=== PATIENT | female | born 1935 | race Hispanic/Latino ===

== ENCOUNTER 2017-02-03 10:51 | Inpatient (IN) | payer MEDICARE, OTHER ==
[2017-02-03] MEDS: Albuterol-Ipratrop 3 mg / 0.5 (3 ml) UD IH SCH ×3 (11:21→12:03)
[2017-02-03 11:25] LABS: ADD MANUAL DIFF? NO
[2017-02-03 11:29] LABS: BASO # 0.02 K/mm3 (0.0-2.0); BASO % 0.1 % (0.0-3.0); GRAN % 87.7 % (50.0-68.0); LYMPH # 0.9 (1.2-3.4); LYMPH % 4.3 % (22.0-35.0); MEAN CELL VOLUME 87.1 fL (80.0-105.0); MEAN CORPUSCULAR HEMOGLOBIN 27.8 pg (25.0-35.0); MEAN CORPUSCULAR HGB CONC 31.9 g/dl (31.0-37.0); MEAN PLATELET VOLUME 10.2 fl (7.0-11.0); MONO # 1.6 (0.1-0.6); MONO % 7.9 % (1.0-6.0); PLATELET COUNT 293 10^3/uL (120.0-450.0); RED CELL DISTRIBUTION WIDTH 14.9 % (11.5-14.5); WHITE BLOOD COUNT 20.6 10^3/ul (4.5-11.0)
[2017-02-03 11:30] LABS: VENOUS BLOOD GAS BASE EXCESS 10.7 mmol/L (0.0-2.0); VENOUS BLOOD PH 7.38 (7.32-7.43)
--- NOTE | 2017-02-03 11:32 | ED PDOC ---
Arrival/HPI - General Chief Complaint: Shortness Of Breath Time Seen by Provider: 02/03/17 11:04 Historian: Patient - History of Present Illness Narrative History of Present Illness (Text): 02/03/17 11:07 A 81 year old female, whose past medical history includes chronic bronchitis and Bypass surgery, who presents to the emergency department complaining of shortness of breath and dyspnea on exertion for the past 5 days. Patient reports she talked to her PMD, who increased the dosage of predisone and water pill. Patient states she normal takes 5mg of predisone to 20mg. Patient notes she has been using her home nebulizer, which has brought her relief for short periods of time. Patient has a productive cough with "milk-like" sputum but denies any fever, chill, chest pain, nausea, vomiting, or any other complaints at this time. PMD: Dr. Gay Time/Duration: Other (5 days) Symptom Onset: Sudden Symptom Course: Unchanged Quality: Other Activities at Onset: Rest Context: Exertion, Home Past Medical History - Provider Review Nursing Documentation Reviewed: Yes - Infectious Disease Hx of Infectious Diseases: None - Reproductive Menopause: Yes - Cardiac Hx Cardiac Disorders: Yes Hx Hypertension: Yes - Pulmonary Hx Chronic Obstructive Pulmonary Disease (COPD): Yes Other/Comment: uses o2 at home prn - Neurological Hx Neurological Disorder: No - HEENT Hx HEENT Disorder: Yes Hx Cataracts: Yes (r eye sx, left eye no sx) Hx Glaucoma: Yes - Renal Hx Renal Disorder: No - Endocrine/Metabolic Hx Diabetes Mellitus Type 2: Yes - Hematological/Oncological Hx Blood Disorders: No - Integumentary Hx Dermatological Disorder: Yes (ROCEASEA) Other/Comment: bruise to r buttock, left arm, and bump to top back of head from fall 2 weeks ago - Musculoskeletal/Rheumatological Hx Falls: Yes - Gastrointestinal Hx Gastrointestinal Disorders: Yes (obese) - Genitourinary/Gynecological Hx Genitourinary Disorders: No - Psychiatric Hx Psychophysiologic Disorder: Yes (SMOKED CIGARETTES FOR 45 YRS. ETOH OCCASIONALLY) Hx Substance Use: No - Surgical History Hx Coronary Artery Bypass Graft: Yes - Anesthesia Hx Anesthesia Reactions: No Family/Social History - Physician Review Nursing Documentation Reviewed: Yes Family/Social History: Unknown Family HX Smoking Status: Never Smoked Hx Alcohol Use: Yes (social) Hx Substance Use: No Allergies/Home Meds Allergies/Adverse Reactions: Allergies No Known Allergies Allergy (Verified 02/03/17 11:03) Home Medications: Home Meds Medication Instructions Recorded Confirmed Latanoprost 0.005% Opht [Xalatan 1 drp BOTHEYES HS 11/16/15 02/03/17 Opht] Simvastatin 40 mg PO DAILY 11/16/15 02/03/17 ALPRAZolam [Xanax] 0.25 mg PO BID PRN 12/20/15 02/03/17 Albuterol Sulfate [Proair Hfa] 1 inh INH QID 12/20/15 02/03/17 Zolpidem [Ambien] 5 mg PO HS 12/20/15 02/03/17 Ergocalciferol (Vitamin D2) 1.25 iu PO .WEEKLY 07/18/16 02/03/17 [Vitamin D] Fluticasone/Salmeterol 250/50 1 inh INH BID 07/18/16 02/03/17 [Advair Diskus 250/50] Furosemide [Lasix] 40 mg PO .DAILY 07/18/16 02/03/17 Potassium Chloride [Klor-Con 10 meq PO DAILY 07/18/16 02/03/17 Sprinkle] Timolol 0.5% Ophth [Timoptic 0.5% 1 drop BOTHEYES DAILY 07/18/16 02/03/17 Ophth Soln] Tiotropium [Spiriva] 18 mcg IH DAILY 07/18/16 02/03/17 predniSONE [predniSONE Tab] 5 mg PO DAILY 07/19/16 02/03/17 Apixaban [Eliquis] 5 mg PO BID 02/03/17 02/03/17 Docusate Sodium [Colace] 100 mg PO DAILY 02/03/17 02/03/17 Metoprolol Succinate [Toprol XL] 12.5 mg PO DAILY 02/03/17 02/03/17 Review of Systems - Physician Review All systems were reviewed & negative as marked: Yes - Review of Systems Constitutional: absent: Fevers Respiratory: SOB, Cough, Sputum Cardiovascular: absent: Chest Pain Gastrointestinal: absent: Nausea, Vomiting Physical Exam Vital Signs Reviewed: Yes Vital Signs Temp Pulse Resp BP Pulse Ox 02/03/17 12:03 157/59 H 02/03/17 11:15 20 94 L 02/03/17 11:06 98.7 F 79 18 128/58 L 90 L Temperature: Afebrile Blood Pressure: Hypertensive Pulse: Regular Respiratory Rate: Normal Appearance: Positive for: Well-Appearing, Non-Toxic, Comfortable Pain Distress: None Mental Status: Positive for: Alert and Oriented X 3 - Systems Exam Head: Present: Atraumatic, Normocephalic Pupils: Present: PERRL Extroacular Muscles: Present: EOMI Conjunctiva: Present: Normal Mouth: Present: Moist Mucous Membranes Neck: Present: Normal Range of Motion. No: JVD Respiratory/Chest: Present: Good Air Exchange, Decreased Breath Sounds (diffuse) . No: Respiratory Distress, Accessory Muscle Use Cardiovascular: Present: Regular Rate and Rhythm, Normal S1, S2. No: Murmurs Abdomen: Present: Normal Bowel Sounds, Other (morbid obesity). No: Tenderness, Distention, Peritoneal Signs Back: Present: Normal Inspection Upper Extremity: Present: Normal Inspection. No: Cyanosis, Edema Lower Extremity: Present: Normal Inspection, NORMAL PULSES. No: Edema Neurological: Present: GCS=15, Speech Normal Skin: Present: Warm, Dry, Normal Color. No: Rashes Psychiatric: Present: Alert, Oriented x 3, Normal Insight, Normal Concentration Medical Decision Making ED Course and Treatment: EKG: Ordered, reviewed, and independently interpreted the EKG. Rate : 95 BPM Rhythm : NSR Interpretation : Nonspecific IVCD, No STEMI Comparison : Similar to previous EKG for comparison. 02/03/17 11:52 Chest X-ray: As read by me, bilateral pleural effusion and bi-basilar opacities , likely pulmonary edema 02/03/17 11:[address] Gay, who is aware and agrees with the plan to admit the patient to Telemetry for CHF and COPD exacerbation under her services. I have discussed the results and plan with the patient, who expresses understanding. Patient given the opportunity to ask question, all questions were answered and there is agreement with the plan to be admitted to the hospital. - Lab Interpretations Lab Results: 02/03/17 10:05 02/03/17 10:05 Lab Results 02/03/17 10:05: Sodium 137, Chloride 94 L, Potassium 4.0, Carbon Dioxide 35 H, Anion Gap 12, BUN 25 H, Creatinine 0.8, Est GFR ( Amer) > 60, Est GFR ( Non-Af Amer) > 60, Random Glucose 164 H, Calcium 9.4, Total Bilirubin 0.5, AST 21, ALT 17, Alkaline Phosphatase 95, Troponin I 0.03 D, NT-Pro-B Natriuret Pep 2250 H, Total Protein 7.2, Albumin 3.6, Globulin 3.5, Albumin/Globulin Ratio 1.0 L 02/03/17 10:05: pO2 60 H, VBG pH 7.38, VBG pCO2 65.0 H, VBG HCO3 38.5 H, VBG Total CO2 40.5 H, VBG O2 Sat (Calc) 94.3 H, VBG Base Excess 10.7 H, VBG Potassium 4.1, Sodium 137.0, Chloride 99.0, Glucose 168 H, Lactate 1.9, FiO2 21.0, Venous Blood Potassium 4.1 02/03/17 10:05: WBC 20.6 H D, RBC 4.82, Hgb 13.4, Hct 42.0, MCV 87.1, MCH 27.8, MCHC 31.9, RDW 14.9 H, Plt Count 293, MPV 10.2, Gran % 87.7 H, Lymph % (Auto) 4.3 L, [place] % (Auto) 7.9 H, Eos % (Auto) 0.0 L, Baso % (Auto) 0.1, Gran # 18.10 H, Lymph # 0.9 L, [place] # 1.6 H, Eos # 0.0, Baso # 0.02 I have reviewed the lab results: Yes - RAD Interpretation Radiology Orders: 02/03/17 11:14 CHEST TWO VIEWS (PA/LAT) [RAD] Stat - Medication Orders Current Medication Orders: Acetaminophen (Tylenol 325mg Tab) 650 mg PO Q6H PRN PRN Reason: Fever >100.4 F Alprazolam (Xanax) 0.25 mg PO BID PRN; Protocol PRN Reason: Anxiety Stop: 02/10/17 12:05 Apixaban (Eliquis) 5 mg PO BID [facility] PRN Reason: Protocol Aspirin (Aspirin Chewable) 81 mg PO DAILY [facility] Last Admin: 02/03/17 13:35 Dose: 81 mg Atorvastatin Calcium (Lipitor) 20 mg PO DIN [facility] Docusate Sodium (Colace) 100 mg PO DAILY [facility] Last Admin: 02/03/17 13:36 Dose: 100 mg Furosemide (Lasix) 40 mg IVP DAILY [facility] Last Admin: 02/03/17 13:37 Dose: Doxycycline Hyclate 100 mg/ (Sodium Chloride) 100 mls @ 100 mls/hr IVPB Q12 [facility] PRN Reason: Protocol Insulin Human Lispro (Humalog High) 0 units SC ACHS [facility] PRN Reason: Protocol Latanoprost (Xalatan Opht) 0 ml OU HS [facility] Levalbuterol HCl (Xopenex) 1.25 mg IH [id number] [facility] Methylprednisolone (Solu-Medrol) 40 mg IV Q8 [facility] Pantoprazole Sodium (Protonix Ec Tab) 40 mg PO 0630 [facility] Potassium Chloride (Klor-Con 10) 10 meq PO DAILY [facility] Timolol Maleate (Timoptic 0.5% Oph Soln) 0 drop OU DAILY [facility] Zolpidem Tartrate (Ambien) 5 mg PO HS [facility] PRN Reason: Protocol Discontinued Medications Albuterol/Ipratropium (Duoneb 3 Mg/0.5 Mg (3 Ml) Ud) 3 ml IH Q15M [facility] Stop: 02/03/17 11:46 Last Admin: 02/03/17 12:03 Dose: 3 ml Furosemide (Lasix) 40 mg IVP STAT ST[facility] Stop: 02/03/17 11:54 Last Admin: 02/03/17 12:03 Dose: 40 mg Levofloxacin/Dextrose (Levaquin 750mg) 750 mg in 150 mls @ 100 mls/hr IVPB STAT STA Stop: 02/03/17 13:23 Last Admin: 02/03/17 12:04 Dose: 100 mls/hr Methylprednisolone (Solu-Medrol) 125 mg IVP STAT STA Stop: 02/03/17 11:15 Last Admin: 02/03/17 11:21 Dose: 125 mg Non-Formulary Medication (Potassium Chloride [Klor-Con Sprinkle]) 10 meq PO DAILY [facility] Non-Formulary Medication (Simvastatin [Simvastatin]) 40 mg PO DAILY [facility] Potassium Chloride (Klor-Con 10) 10 meq PO .EXTRA DOSE ONE Stop: 02/03/17 12:16 Last Admin: 02/03/17 13:35 Dose: 10 meq - Scribe Statement The provider has reviewed the documentation as recorded by the Mariana Campa Provider Scribe Attestation: All medical record entries made by the Scribe were at my direction and personally dictated by me. I have reviewed the chart and agree that the record accurately reflects my personal performance of the history, physical exam, medical decision making, and the department course for this patient. I have also personally directed, reviewed, and agree with the discharge instructions and disposition. Disposition/Present on Arrival - Present on Arrival Any Indicators Present on Arrival: No History of DVT/PE: No History of Uncontrolled Diabetes: No Urinary Catheter: No History of Decub. Ulcer: No History Surgical Site Infection Following: None - Disposition Have Diagnosis and Disposition been Completed?: Yes Diagnosis: CHF exacerbation, COPD exacerbation Disposition: HOSPITALIZED Disposition Time: 11:55 Patient Problems: Current Active Problems Problem Status Onset COPD exacerbation Acute CHF exacerbation Acute Condition: STABLE
[2017-02-03 11:40] LABS: ALKALINE PHOSPHATASE 95 U/L (38-133); ALT/SGPT 17 U/L (7-56); AST/SGOT 21 U/L (15-39); BILIRUBIN,TOTAL 0.5 mg/dL (0.2-1.3); BLOOD UREA NITROGEN 25 mg/dL (7-21); CALCIUM 9.4 mg/dL (8.4-10.5); CARBON DIOXIDE 35 mmol/L (21-33); CHLORIDE 94 mmol/L (98-107); GFR AFRICAN-AMERICAN > 60; GLUCOSE,RANDOM 164 mg/dL (70-110); SODIUM 137 mmol/L (132-148); TOTAL PROTEIN 7.2 g/dL (5.8-8.3)
[2017-02-03 11:51] LABS: TROPONIN I 0.03 ng/mL
[2017-02-03] MEDS ORDERED: levoFLOXacin 750 mg in D5W 750 MG/150 ML BAG IVPB STA (11:54)
[2017-02-03] MEDS ORDERED: Potassium Chloride 10 mEq ER Tab PO ONE (12:15)
[2017-02-03] MEDS ORDERED: Non Formulary Medication (Simvastatin [Simvastatin] 40 MG) PO SCH (12:15)
[2017-02-03] MEDS ORDERED: Non Formulary Medication (Potassium Chloride [Klor-Con Sprinkle] 10 MEQ) PO SCH (12:15)
--- NOTE | 2017-02-03 13:27 | HP ---
The patient is an 81-year-old white female who has been calling me in office for the last 3-4 days th at she was increasingly short of breath. She usually takes 5 mg of prednisone daily, but it was incr eased to 20 daily for the last 3-4 days. She was advised to increase the frequency of her nebulizer treatment. She was also given extra doses of Lasix, but apparently it did not help and this morning, she told her daughter that she cannot breathe, so daughter called ambulance and she was brought to [facility]. Denies any fever or chills. Does complain of productive cough with clear to posada muc us. No fever, no chills, no hemoptysis, no hematemesis, no nausea, vomiting, no diarrhea. PAST MEDICAL HISTORY: Significant for: 1. Hypertension. 2. CHF. 3. Morbid obesity. 4. Hyperlipidemia. 5. Non-insulin dependent diabetes. ALLERGIES: She is not allergic to any medications. MEDICATIONS AT HOME: She takes: 1. Ambien 10 mg at bedtime. 2. Spiriva 18 mcg daily. 3. Timolol drops. 4. Simvastatin 40 mg daily. 5. Prednisone 5 mg daily. 6. Potassium 10 mEq daily. 7. Xalatan eyedrops. 8. Lasix 80 mg Friday, Friday and 40 on other days. 9. Aspirin 81 daily. 10. Nebulizer treatment. 11. Xanax 0.25 twice a day as needed. SOCIAL HISTORY: She has a history of smoking in the past. She used to be heavy smoker. Socially dr she and currently living with her daughter. REVIEW OF SYSTEMS: Significant for shortness of breath and generalized weakness. PHYSICAL EXAMINATION: GENERAL: She is awake and alert, communicative. VITAL SIGNS: She is afebrile. Pulse 79, respirations 18, blood pressure 128/58. LUNGS: Bilateral few expiratory rhonchi. HEART: S1, S2 audible. ABDOMEN: Soft, obese, nontender, no rebound, no guarding. NEUROLOGIC: The patient is awake and alert, communicative. Moves all extremities. LABORATORY EXAMINATION: WBCs 20.6, hemoglobin 13.4, hematocrit 42.0, platelets 293. Chemistry: Sod ium 137, potassium 4.0, chloride 94, CO2 35, BUN 25, creatinine 0.8, blood sugar of 164. BNP 2250. ASSESSMENT: 1. Chronic obstructive pulmonary disease exacerbation. 2. Congestive heart failure exacerbation. 3. Non-insulin dependent diabetes. 4. Hypertension. 5. Hyperlipidemia. PLAN: We will admit patient in telemetry, start IV diuretic, start her on Xopenex and monitor her bl ood sugar. Pulmonary consult by Dr. Martinez and cardiology consult by Dr. Manzo has been requested. Nataly Gay MD cc: [phone] TT: 02/03/2017 13:27:13 en
--- NOTE | 2017-02-03 15:09 | RAD ---
HISTORY: sob COMPARISON: Chest x-ray performed 07/18/16 TECHNIQUE: Chest PA and lateral FINDINGS: Examination limited by habitus. The patient's chin obscures evaluation of the lung apices. LUNGS: Bilateral mid to lower lung zone consolidations and/or pleural effusions. No definite pneumothorax. Please note that chest x-ray has limited sensitivity for the detection of pulmonary masses. CARDIOVASCULAR: Cardiomegaly. Atherosclerotic calcification of the aorta. Median sternotomy wires. OSSEOUS STRUCTURES: Degenerative changes. VISUALIZED UPPER ABDOMEN: Unremarkable. OTHER FINDINGS: None. IMPRESSION: Bilateral mid to lower lung zone consolidations and/or pleural effusions. Cardiomegaly. Study marked for PA review.
[2017-02-03] MEDS: Levalbuterol 1.25 MG/3 ML Inhal Soln UD IH SCH (15:10)
[2017-02-03] MEDS: MethylPREDNISolone 40 mg Vial IV SCH ×2 (15:11→22:32)
[2017-02-03] MEDS ORDERED: Insulin Regular 1 UNITS/0.01 ML ML ONE (17:39)
[2017-02-03] MEDS: Insulin Lispro (HUMAlog) HIGH Coverage SC SCH ×2 (17:42→22:07)
[2017-02-03] MEDS ORDERED: Latanoprost 2.5 ml Opht Soln OU SCH (22:00)
[2017-02-03 22:18] VITALS: BMI 43.8
[2017-02-03] MEDS ORDERED: Pneumococcal 23-Valent Vaccine IM ONE (22:18)
[2017-02-03] MEDS: Latanoprost 2.5 ml Opht Soln OU SCH (23:40)
[2017-02-04] MEDS: Levalbuterol 1.25 MG/3 ML Inhal Soln UD IH SCH ×4 (02:24→19:59)
[2017-02-04] MEDS: Pantoprazole 40 mg EC Tab PO SCH (05:31)
[2017-02-04] MEDS: MethylPREDNISolone 40 mg Vial IV SCH (05:31)
[2017-02-04] MEDS: Budesonide 0.5 mg/2 ml Inhal Susp UD IH SCH ×2 (07:51→19:59)
[2017-02-04] MEDS: Insulin Lispro (HUMAlog) HIGH Coverage SC SCH ×4 (08:41→22:12)
[2017-02-04] MEDS ORDERED: cefTRIAXone 1 gm 100 ML IVPB SCH (10:00)
[2017-02-04] MEDS: MethylPREDNISolone 40 mg Vial IVP SCH ×2 (10:23→21:51)
[2017-02-04] MEDS: Potassium Chloride 10 mEq ER Tab PO SCH (10:24)
[2017-02-04] MEDS: cefTRIAXone 1 gm 1 GM/100 ML BAG IVPB SCH (10:25)
--- NOTE | 2017-02-04 11:53 | PN ---
DATE: 02/04/2017 SUBJECTIVE: The patient is 81 years old, seen and examined, sitting in chair. She states she feels a lot better. She should have come to the hospital earlier. She can breathe now. PHYSICAL EXAMINATION: VITAL SIGNS: She is afebrile, pulse 86, respirations 20, blood pressure 140/66. LUNGS: Bilateral fair airflow, no rhonchi or crackle. HEART: S1, S2 audible. ABDOMEN: Soft, nontender, no rebound, no guarding. NEUROLOGIC: The patient is awake and alert, communicative. LABORATORY EXAMINATION: Chemistry: Blood sugar is 333. ASSESSMENT: 1. Chronic obstructive pulmonary disease exacerbation, rule out underlying pneumonia. 2. Acute on chronic congestive heart failure. 3. Morbid obesity. 4. Steroid-induced hyperglycemia. 5. Leukocytosis. PLAN: I will order for procalcitonin, order for CT scan of the chest to further define if she has co nsolidation. Because of her body habitus, that might not be reliable. I will order for CBC and CMP in a.m. Nataly Gay MD cc: [phone] TT: 02/04/2017 11:52:55 Confirmation # [id number] Dictation # [id number] wandy
--- NOTE | 2017-02-04 12:45 | CT ---
PROCEDURE: CT Chest without contrast HISTORY: sob COMPARISON: 02/14/2016 TECHNIQUE: Contiguous axial images were obtained through the chest without intravenous contrast enhancement. Sagittal and coronal reconstructions were performed. Radiation dose (DLP): 877.96 mGy-cm. This CT exam was performed using one or more of the following dose reduction techniques: Automated exposure control, adjustment of the mA and/or kV according to patient size, and/or use of iterative reconstruction technique. FINDINGS: LUNGS: Multifocal irregular opacities in the right lung, nonspecific. Few were small irregular opacities in the left lung. Irregularly-shaped subpleural nodule left lower lobe (series 4, image 80 ) measuring 9 mm. Focal pleural thickening anterior left lower lobe. 7 mm nodule in left upper lobe. This is seen on series 4, image 29. No other discrete pulmonary mass. Probable minimal subsegmental atelectasis in the left lower lobe anteriorly, abutting the pleural surface. These irregular opacities are nonspecific and may be infectious or inflammatory in etiology. The nodules should be followed with repeat noncontrast chest CT in 3 months time, given their size, as per Fleischner society criteria. . MEDIASTINUM: Aneurysmal dilatation of ascending thoracic aorta to a diameter of 4.1 cm. Cardiomegaly. Coronary arterial calcification. Dilated main pulmonary artery to a 3.8 cm diameter. This may correlate with pulmonary arterial hypertension. No lymphadenopathy. PLEURA: No pleural effusion or pneumothorax. BONES: No fracture. No destructive lesion. UPPER ABDOMEN: Grossly unremarkable. OTHER FINDINGS: None. IMPRESSION: Multifocal irregular opacities, right greater than left. Nonspecific. Infectious versus inflammatory. Few fred discrete nodules in the left lung as described, 7 mm and 9 mm. This should be followed up with repeat noncontrast chest CT in 3 months. . Cardiomegaly. Coronary arterial calcification. Aneurysmal dilatation of the ascending thoracic aorta. Dilated main pulmonary artery.
--- NOTE | 2017-02-04 13:02 | RAD ---
HISTORY: follow up COMPARISON: Comparison chest 02/03/2017. Comparison also made with concurrent CT scan TECHNIQUE: Chest PA and lateral FINDINGS: LUNGS: Bilateral mid to lower lobe opacity seen to better advantage on concurrent CT scan PLEURA: No significant pleural effusion identified. No pneumothorax apparent. CARDIOVASCULAR: Cardiomegaly. OSSEOUS STRUCTURES: No significant abnormalities. VISUALIZED UPPER ABDOMEN: Normal. OTHER FINDINGS: None. IMPRESSION: Patchy bilateral mid to lower lobe opacities. Cardiomegaly.
--- NOTE | 2017-02-04 13:39 | CON ---
DATE: 02/04/2017 REASON FOR CONSULTATION: Chronic obstructive pulmonary disease. REFERRING PHYSICIAN: Dr. Gay The patient is an 81-year-old female, with past medical history significant for advanced chronic obstructive pulmonary disease (uses oxygen at home), recurrent bronchitis, coronary artery disease, status post bypass surgery,obesity who presents to [facility] with a 4-day history of worsening shortness of breath at rest, dyspnea on exertion, cough, and sputum production. There is no history of chest pain, coughing up of blood or chest pain -- made worse with deep respirations. There is no history of temperatures, chills or infectious exposure. There is no history of night sweats, weight loss or appetite change prior to the above events. No history of leg or calf pains. No history of syncope or diaphoresis. No history of recent travel or trauma. REVIEW OF SYSTEMS: No history of nausea, vomiting or diarrhea. No acute urinary symptoms. No new neurologic or musculoskeletal complaints. Rest is negative. ALLERGIES: No known allergies. SOCIAL HISTORY: Positive for former tobacco usage. Positive for social alcohol usage. FAMILY HISTORY: No inheritable diseases. HOME MEDICATIONS: Include prednisone, Ambien, Spiriva, Toprol, Lasix, Advair, Eliquis, Xanax. PHYSICAL EXAMINATION: GENERAL: The patient appears comfortable at rest this morning. She is not using accessory muscles for breathing. VITAL SIGNS: Temperature is 98.0, pulse 86, respirations 18/20, blood pressure 132/48. Oxygen saturation on nasal cannula is 96%. HEENT: Normocephalic, atraumatic. No JVD. CARDIOVASCULAR: Systolic ejection murmur at the lower left sternal border. No S3 gallop. LUNGS: Decreased breath sounds at the bases. Mild bilateral rhonchi are appreciated. A few end expiratory wheezes are also appreciated. EXTREMITIES: Mild edema. No cyanosis, no clubbing. Calves are nontender to palpation. GASTROINTESTINAL: Abdomen is soft, nontender, nondistended. Bowel sounds are positive. SKIN: No acute rash. NEUROLOGIC: Limited at the present time. PERTINENT LABORATORY DATA: Chest x-ray was done in the Emergency Room yesterday. It is a poor semierect portable film. There is a questionable patchy infiltrate noted at the right base. CBC: White count 20.6, hemoglobin 13.4, hematocrit 42.0, platelets of 293. Complete metabolic profile: Chloride 94, carbon dioxide 35, BUN 25, glucose 164, B-type natriuretic peptide 2250. Rest of the metabolic profile is within normal limits. IMPRESSION: 1. Recurrent bronchitis. 2. Advanced chronic obstructive pulmonary disease. 3. Rule out pneumonia -- right lower lobe. 4. Coronary artery disease. 5. Diabetes mellitus. PLAN: The patient presents to [facility] with a 4-day history of worsening pulmonary symptoms. I did review the chest x-ray as above. The chest x-ray is a poor semierect portable film. I do question whether there is an infiltrate at the right base. As a first step, I will order a repeat chest x -ray -- 2 view -- for closer evaluation. In the meantime, I will order lozada cultures. The patient has been started on doxycycline. I will add Rocephin for the time being. On physical exam, there is mild bronchospasm appreciated. I will continue with the Xopenex nebulizer treatments and decrease the intravenous steroids this morning. I will also add inhaled Pulmicort. The patient does feel much better this morning -- compared to the previous days. She is clinically improved. Additional pulmonary intervention will be based on the above results, as well as the clinical status of the patient. I will discuss the above with Dr. Gay. Thank you very much for this pulmonary consultation. Smith Martinez MD cc: [phone] TT: 02/04/2017 13:38:32 Confirmation # [id number] Dictation # [id number] MTDD
--- NOTE | 2017-02-04 14:40 | CON ---
DATE: 02/04/2017 HISTORY OF PRESENT ILLNESS: This is an 81-year-old woman known to our practice , admitted with several days of progressive shortness of breath, admitted through the Emergency Room with exacerbation of COPD and CHF. She described increasing shortness of breath over the course of several days. She has been in contact with Dr. Gay who increased her Lasix and prednisone, but she continued to worsen and came to the Emergency Room. This morning she feels much better, lying flat in bed without shortness of breath. There was no chest pain, syncope, presyncope, lightheadedness, dizziness or vertigo. There were no palpitations, edema, claudication, fever, chills, rigor, sweats, hemoptysis. There was some cough with sputum production. There was no abdominal pain, nausea, vomiting, diarrhea, constipation, melena. PAST MEDICAL HISTORY: Notable for COPD. She is a former smoker and uses home O2. She has coronary artery disease with coronary bypass operation and chronic left bundle branch block. She has bradycardias and metoprolol was discontinued in the past. There is a history of hypertension, diabetes, hyperlipidemia, obesity, cataracts, degenerative joint disease, anxiety. Echocardiogram in 2015 demonstrated normal LV function with moderate tricuspid regurgitation and moderate to severe pulmonary hypertension. RECENT MEDICATIONS: Ambien, Spiriva, eyedrops, simvastatin, prednisone, potassium, Lasix, aspirin, nebulizers and Xanax. ALLERGIES: There are no medication allergies reported. SOCIAL HISTORY: She lives at home. She is a former smoker. She drinks alcohol occasionally. She lives at home with her daughter. FAMILY HISTORY: Noncontributory. REVIEW OF SYSTEMS: A 10-point review of systems is otherwise unremarkable except as noted above. PHYSICAL EXAMINATION: GENERAL: She is a well-developed woman lying in bed on telemetry in no acute distress. VITAL SIGNS: Unremarkable. She is in sinus rhythm at 86 beats per minute. She is afebrile. Blood pressure 132/48, respirations 18-20, O2 sat 95-99% on nasal cannula. HEENT: Reveals no neck vein distention, thyromegaly, or carotid bruits. Mucous membranes are moist. Conjunctivae are pink. NECK: Supple. LUNG LEE: Scattered rhonchi. A few rales at the bases bilaterally. HEART: Revealed normal first and second heart sounds, somewhat distant. Soft systolic murmur along the lower left sternal border. PMI not palpable. ABDOMEN: Obese, benign. Bowel sounds present. No mass, organomegaly, tenderness, rebound, or guarding. No CVA tenderness. No palpable abdominal aortic aneurysm. EXTREMITIES: Reveals no cyanosis, clubbing or edema. NEUROLOGIC: Awake, alert and oriented. PSYCHIATRIC: Normal as to mood and affect. SKIN: Warm and dry. No rash or cellulitis. LABORATORY AND IMAGING: A chest x-ray reveals congestive heart failure, bilateral mid to lower lung zone consolidations and/or pleural effusions, cardiomegaly. EKG demonstrates regular sinus rhythm, PVCs, left bundle branch block. White count 20,600. Hemoglobin, hematocrit normal. Platelet count normal. Blood gas noted. Electrolytes notable for chloride 94, carbon dioxide 35, sodium 137, potassium 4.0, BUN 25, creatinine 0.8. Blood sugars in the 146- 231 range. LFTs unremarkable. Troponin 0.03. BNP 2250. IMPRESSION: The patient is an 81-year-old woman with severe chronic obstructive pulmonary disease, on home oxygen, who presents with 4-5 days of increasing shortness of breath and comes in with evidence of chronic obstructive pulmonary disease and congestive heart failure. She has a history of pulmonary hypertension, moderate tricuspid regurgitation, normal left ventricular function on echocardiogram about a year ago. She has coronary artery bypass surgery in the remote past and a chronic left bundle branch block. At this time, I agree with current plan. She is on telemetry. She is receiving IV Lasix and already feels much better. Her I and O, however, was not recorded. She is getting aspirin, Eliquis, potassium, Lipitor, eyedrops, pulmonary meds, Solu-Medrol, pantoprazole, and a dose of levofloxacin has been given. We will monitor I's and O's. I will review her old records. She is having a pulmonary consultation with Dr. Martinez. She can be out of bed to a chair. We will monitor stool for occult blood, daily labs, sats and followup chest x- rays. I will follow along with you. I will make additional recommendations based on her clinical course. Carlos Eduardo Manzo MD cc: [phone] TT: 02/04/2017 14:39:22 Confirmation # [id number] Dictation # [id number] mn CLIFF
--- NOTE | 2017-02-04 17:58 | CARD ---
APPROVED REPORT EKG Measurement Heart [id number] <Conclusion> Sinus rhythm with occasional premature ventricular complexes and premature atrial complexes Nonspecific intraventricular block Cannot rule out Anterior infarct, age undetermined Abnormal ECG
[2017-02-04] MEDS: Latanoprost 2.5 ml Opht Soln OU SCH (22:02)
[2017-02-05] MEDS: Levalbuterol 1.25 MG/3 ML Inhal Soln UD IH SCH ×4 (02:13→19:17)
[2017-02-05] MEDS: Pantoprazole 40 mg EC Tab PO SCH (05:55)
[2017-02-05] MEDS: Budesonide 0.5 mg/2 ml Inhal Susp UD IH SCH ×2 (07:47→19:17)
[2017-02-05 07:55] LABS: ADD MANUAL DIFF? NO
[2017-02-05 08:01] LABS: BASO # 0.02 K/mm3 (0.0-2.0); BASO % 0.1 % (0.0-3.0); GRAN # 12.41 (1.4-6.5); HEMATOCRIT 39.2 % (36.0-48.0); LYMPH # 1.3 (1.2-3.4); LYMPH % 8.5 % (22.0-35.0); MEAN CELL VOLUME 88.3 fL (80.0-105.0); MEAN CORPUSCULAR HGB CONC 30.6 g/dl (31.0-37.0); MEAN PLATELET VOLUME 9.9 fl (7.0-11.0); MONO # 1.1 (0.1-0.6); MONO % 7.4 % (1.0-6.0); PLATELET COUNT 286 10^3/uL (120.0-450.0); RED CELL DISTRIBUTION WIDTH 14.8 % (11.5-14.5); WHITE BLOOD COUNT 14.8 10^3/ul (4.5-11.0)
--- NOTE | 2017-02-05 08:10 | PQF CHF ---
This form is a permanent part of the medical record Dr. Gay, Your documentation notes acute on chronic CHF. Please specify type: systolic or diastolic. Clarification of your documentation is requested to better reflect the severity of illness and intensity of treatment of your patient. Indicators present [x] Diagnosis of CHF and/or history of CHF [x] BNP > 200 [x] Imaging Finding of Pulmonary Edema /Pleural Effusions [] Fluid/Volume Overload [] Pitting edema [] Ejection Fraction < 40% (Indicative of Systolic Heart Failure) [] Ejection Fraction > 40% (Indicative of Diastolic Heart Failure) [x] Dyspnea / Orthopenea / Paroxysmal Nocturnal Dyspnea [x] Other: Documentation by cardiology of normal LVF Location in the medical record that reflects the above clinical findings: [] Treatment Provided: [] PHYSICIAN'S RESPONSE Based on your medical judgment of the clinical indicators outlined above, are you treating this patient for a known or suspected: [] Acute CHF [] Systolic [] Diastolic [] Combined [] Chronic CHF [] Systolic [] Diastolic [] Combined x[] Acute on Chronic CHF [x]Systolic [] Diastolic [] Combined [] CHF due hypertension [] Acute systolic []Chronic systolic [] Acute/ chronic systolic [] Other, please indicate: [] [] If Unable to Determine, please check the box, sign and date. Present On Admission (POA) Indicator: [] Present at the time of admission [] Not present at the time of admission [] Clinically Undetermined In responding to this query, please exercise your independent professional judgment. The fact that a question is asked does not imply that any particular answer is desired or expected. Thank you for your clarification on this documentation. If you have any questions please call:[ ] * Thank you, [ ]Servando Butts [facility] #[id number] fleet administrative assistant CLIFF
[2017-02-05 08:31] LABS: ALB/GLOB RATIO 1.1 (1.1-1.8); ALKALINE PHOSPHATASE 72 U/L (38-133); ALT/SGPT 25 U/L (7-56); AST/SGOT 20 U/L (15-39); BILIRUBIN,TOTAL 0.2 mg/dL (0.2-1.3); BLOOD UREA NITROGEN 31 mg/dL (7-21); CALCIUM 9.6 mg/dL (8.4-10.5); CARBON DIOXIDE 38 mmol/L (21-33); CHLORIDE 99 mmol/L (95-110); GFR AFRICAN-AMERICAN > 60; GLUCOSE,RANDOM 130 mg/dL (70-110); POTASSIUM 5.2 mmol/L (3.6-5.0); SODIUM 141 mmol/L (132-148)
[2017-02-05] MEDS: Insulin Lispro (HUMAlog) HIGH Coverage SC SCH ×4 (08:56→21:58)
--- NOTE | 2017-02-05 08:57 | PN ---
DATE: 02/05/2017 SUBJECTIVE: The patient appears comfortable this morning. She is not short of breath at rest. PHYSICAL EXAMINATION: VITAL SIGNS: Temperature is 98.9, pulse is 69, respirations 18/20, blood pressure 100/61. Oxygen saturation on nasal cannula is 96%. HEENT: Normocephalic, atraumatic. No JVD. CARDIOVASCULAR: Systolic ejection murmur at the lower left sternal border. No S3 gallop. LUNGS: Improved breath sounds at the bases. Much less rhonchi. Less wheezing. EXTREMITIES: Mild edema. No cyanosis, no clubbing. Calves are nontender to palpation. GASTROINTESTINAL: Abdomen is soft, nontender, nondistended. Bowel sounds are positive. SKIN: No acute rash. NEUROLOGIC: Limited at the present time. PERTINENT LABORATORY DATA: CAT scan of the chest was done yesterday and reviewed. There are patchy changes seen -- most notably in the right middle lobe and right lower lobes. Most of these areas do contain air bronchograms and are most consistent with pneumonia. There are also a few small nodules noted in the left lung -- one in the left upper lobe and one in the left lower lobe. IMPRESSION: 1. Recurrent bronchitis. 2. Advanced chronic obstructive pulmonary disease. 3. Pneumonia -- right lower lobe,right middle lobe. 4. Coronary artery disease. 5. Diabetes mellitus. 6. Pulmonary nodules. PLAN: The patient appears very comfortable this morning. She is not short of breath at rest. Her cough is much less. She states to feeling much better overall. On physical exam, her bronchospasm is certainly less. I will continue with the current nebulizer treatments and decrease the intravenous steroids this morning. There is no significant alveolar arterial gradient. Oxygen saturation on nasal cannula is now 96%. I did review the CAT scan of the chest. There are patchy opacities in the right lung -- specifically in the right middle lobe and right lower lobes -- with air bronchograms -- most consistent with pneumonia. There are also 2 small pulmonary nodules noted in the left lung. I did discuss the CAT scan findings with the patient at length. The patient is well aware that she will need a followup CAT scan-- as an outpatient--after the completion of antibiotics. She does follow closely with me in the office. For now, I will continue with the current antibiotic therapy. There are no temperatures noted. Repeat a.m. labs are pending. Clinical status of the patient is certainly improved -- compared to the initial presentation. However, the overall status/prognosis of this elderly woman -- with advanced chronic obstructive pulmonary disease - does remain guarded. I will discuss the above with the attending physician this morning. Smith Martinez MD cc: [phone] TT: 02/05/2017 08:56:56 Confirmation # [id number] Dictation # [id number] tn MTDD
--- NOTE | 2017-02-05 10:43 | PN ---
DATE: 02/05/2017 SUBJECTIVE: The patient is seen lying in bed on 3R. She feels somewhat better. Her dyspnea has imp roved. She continues to have a cough, but it is now nonproductive. She is afebrile. CURRENT MEDICATIONS: Include aspirin, Colace, doxycycline, Eliquis 5 mg b.i.d., insulin coverage, La six 40 mg daily, potassium 10 mEq daily, Lipitor 20 mg daily, Protonix 40 mg daily, Pulmicort inhaler , Rocephin, Solu-Medrol 30 mg q. 12 hours, Timoptic and Xalatan eyedrops, Xopenex and Xanax p.r.n. OBJECTIVE: GENERAL: She is an obese, elderly woman. VITAL SIGNS: Her blood pressure is 100/60 with a pulse of 70 in sinus, respirations are 16. She is afebrile. HEENT: No JVD. CHEST: Bilateral rhonchi heard. No wheezes noted this morning. HEART: PMI displaced laterally with distant sounds noted. ABDOMEN: Soft. Nontender. Obese with normoactive bowel sounds. EXTREMITIES: No edema. DIAGNOSTIC DATA: Potassium 5.2, BUN and creatinine are 31 and 0.9. White count 14.8, hemoglobin and hematocrit 12 and 39.2, platelet count 286,000. Cardiac enzymes are negative. Glucose is 130. CT of the chest shows evidence of multifocal irregular opacifications in the right lung greater than the left. Cardiomegaly is present. No pleural effusions are seen. IMPRESSION: 1. Chronic obstructive pulmonary disease exacerbation, clinically improved. 2. Coronary artery disease, status post remote bypass surgery, clinically stable. 3. No clear evidence of decompensated congestive heart failure at the present time. 4. Rest of problems as noted. RECOMMENDATIONS: Her current treatment should be continued. Her current cardiac medications will be continued as well. She was advised to get out of bed and begin ambulation as tolerated. We will co ntinue to follow along and make further recommendations as appropriate. Nickolas Millard MD cc: [id number] TT: 02/05/2017 10:42:44 Confirmation # [id number] Dictation # [id number] tn
[2017-02-05] MEDS: cefTRIAXone 1 gm 1 GM/100 ML BAG IVPB SCH (10:49)
[2017-02-05] MEDS: MethylPREDNISolone 40 mg Vial IVP SCH ×2 (10:50→22:04)
[2017-02-05] MEDS: Potassium Chloride 10 mEq ER Tab PO SCH (10:51)
--- NOTE | 2017-02-05 13:00 | PN ---
DATE: 02/05/2017 SUBJECTIVE: The patient is an 81-year-old, seen and examined. She states she is doing well. Last n ight she could not sleep because she has to go for a couple of tests. Denies any chest pain, no shor tness of breath, no nausea, vomiting or diarrhea. She does state that when she walks to the bathroom she does get short of breath. PHYSICAL EXAMINATION: VITAL SIGNS: She is afebrile, pulse 79, respirations 19, blood pressure 128/63. LUNGS: Bilateral fair airflow. Diffusely decreased breath sounds because of COPD. No soft crackle. HEART: S1, S2 audible. ABDOMEN: Soft, obese, nontender, no rebound, no guarding. NEUROLOGIC: She is awake and alert, communicative. EXTREMITIES: Bilateral legs, no edema. LABORATORY EXAMINATION: WBC is 14.8, hemoglobin 12, hematocrit 39, platelet 286. Chemistry: Sodium 141, potassium 5.2, chloride 38, chloride 99, CO2 of 38, BUN 31, creatinine 0.9, blood sugar of 203. She had CT scan of the chest done. CT scan of the chest shows multifocal irregular opacities, righ t greater than the left, nonspecific infectious versus inflammatory. There is a nodule in the left l osman. ASSESSMENT: 1. Chronic obstructive pulmonary disease exacerbation. 2. Morbid obesity. 3. Acute on chronic mild systolic congestive heart failure. 4. Hypertension. 5. Steroid-induced hyperglycemia. PLAN: We will continue patient on current medical regimen. She is currently on Rocephin and doxycyc line. Continue nebulizer treatment. Will follow up this patient in a.m. Out of bed to chair. Nataly Gay MD cc: [phone] TT: 02/05/2017 12:59:50 Confirmation # [id number] Dictation # [id number] wandy
[2017-02-05] MEDS: Latanoprost 2.5 ml Opht Soln OU SCH (22:05)
[2017-02-06] MEDS: Levalbuterol 1.25 MG/3 ML Inhal Soln UD IH SCH ×4 (01:26→19:30)
[2017-02-06] MEDS: Pantoprazole 40 mg EC Tab PO SCH (05:50)
[2017-02-06] MEDS: Insulin Lispro (HUMAlog) HIGH Coverage SC SCH ×4 (08:00→22:21)
[2017-02-06] MEDS: Budesonide 0.5 mg/2 ml Inhal Susp UD IH SCH ×2 (08:22→19:30)
--- NOTE | 2017-02-06 08:46 | CP.PCM.PN ---
Subjective - Date & Time of Evaluation Date of Evaluation: 02/06/17 Time of Evaluation: 07:00 - Subjective Subjective: Stable on 2R. No CP or SOB. She feels better. V/S noted: RSR PE: Lungs: few rhonchi Cor.: S1S2 Abd.: soft Ext.: no edema Neuro.: alert I/O= 500/701 BC x2 NG at 48 hrs Labs noted. Objective - Vital Signs/Intake and Output Vital Signs (last 24 hours): Temp Pulse Resp BP Pulse Ox 98.4 F 75 20 115/51 L 97 02/06/17 06:00 02/06/17 06:00 02/06/17 06:00 02/06/17 06:00 02/06/17 06:00 Intake and Output: 02/06/17 02/06/17 06:59 18:59 Intake Total 500 Output Total 701 Balance -201 - Medications Medications: Current Medications Acetaminophen (Tylenol 325mg Tab) 650 mg PO Q6H PRN PRN Reason: Fever >100.4 F Alprazolam (Xanax) 0.25 mg PO BID PRN; Protocol PRN Reason: Anxiety Stop: 02/10/17 12:05 Amlodipine Besylate (Norvasc) 10 mg PO DAILY [facility] Apixaban (Eliquis) 5 mg PO BID [facility] PRN Reason: Protocol Last Admin: 02/05/17 18:15 Dose: 5 mg Aspirin (Aspirin Chewable) 81 mg PO DAILY [facility] Last Admin: 02/05/17 10:49 Dose: 81 mg Atorvastatin Calcium (Lipitor) 20 mg PO DIN [facility] Last Admin: 02/05/17 18:15 Dose: 20 mg Budesonide (Pulmicort Respules) 0.5 mg IH [id number] [facility] Last Admin: 02/06/17 08:22 Dose: 0.5 mg Docusate Sodium (Colace) 100 mg PO DAILY [facility] Last Admin: 02/05/17 10:49 Dose: 100 mg Furosemide (Lasix) 40 mg IVP DAILY [facility] Last Admin: 02/05/17 10:53 Dose: 40 mg Doxycycline Hyclate 100 mg/ (Sodium Chloride) 100 mls @ 100 mls/hr IVPB Q12 [facility] PRN Reason: Protocol Last Admin: 02/05/17 22:04 Dose: 100 mls/hr Ceftriaxone Sodium (Rocephin 1 Gram Ivpb) 1 gm in 100 mls @ 100 mls/hr IVPB DAILY [facility] PRN Reason: Protocol Last Admin: 02/05/17 10:49 Dose: 100 mls/hr Insulin Human Lispro (Humalog High) 0 units SC ACHS [facility] PRN Reason: Protocol Last Admin: 02/05/17 21:58 Dose: Not Given Latanoprost (Xalatan Opht) 0 ml OU HS [facility] Last Admin: 02/05/17 22:05 Dose: 2.5 ml Levalbuterol HCl (Xopenex) 1.25 mg IH [id number] [facility] Last Admin: 02/06/17 08:22 Dose: 1.25 mg Methylprednisolone (Solu-Medrol) 30 mg IVP Q12 [facility] Last Admin: 02/05/17 22:04 Dose: 30 mg Pantoprazole Sodium (Protonix Ec Tab) 40 mg PO 0630 [facility] Last Admin: 02/06/17 05:50 Dose: 40 mg Potassium Chloride (Klor-Con 10) 10 meq PO DAILY [facility] Last Admin: 02/05/17 10:51 Dose: Not Given Timolol Maleate (Timoptic 0.5% Ophth Soln) 0 drop OU DAILY [facility] Last Admin: 02/05/17 11:18 Dose: Not Given Zolpidem Tartrate (Ambien) 5 mg PO HS [facility] PRN Reason: Protocol Last Admin: 02/05/17 23:00 Dose: 5 mg - Labs Labs: 02/05/17 07:30 02/05/17 07:30 Assessment and Plan - Assessment and Plan (Free Text) Assessment: Dyspnea COPD/Bronchitis/Home O2 Pneumonia Pulmonary nodules CAD/CABG Echo: Nl LV, Mod. TR, Mod/Sev PH HBP HLD LBBB Former Smoker Glaucoma Cataracts Plan: As per pulmonary, Dr. Gay OOB/PT/TCU Eval.
--- NOTE | 2017-02-06 09:02 | PN ---
DATE: 02/06/2017 The patient was seen and examined at bedside. She is currently on nasal cannula. She reports feelin g better with less cough and less sputum production. VITAL SIGNS: Temperature is 98.4, pulse 75, respirations 20, pulse oximetry is 97% on nasal cannula, blood pressure is 115/50. LABORATORY DATA: No new laboratory data to review. PHYSICAL EXAMINATION: HEAD, EARS, NOSE AND THROAT: Within normal limits. NECK: Supple with no jugular vein distention. CHEST: Symmetrical. HEART: S1, S2. No S3. Regular. LUNGS: Diminished breath sounds at both bases with few scattered rhonchi and few expiratory wheezes. GASTROINTESTINAL: Soft, nontender, no organomegaly. EXTREMITIES: Mild edema. No cyanosis. SKIN: No acute skin rash. NEUROLOGIC: Limited at present time. ASSESSMENT: 1. Recurrent bronchitis, pneumonia, right middle lobe by CT scan. 2. Advanced chronic obstructive pulmonary disease. 3. Pulmonary nodules. PLAN: The patient appears improved this morning. She has less cough and less shortness of breath. She is afebrile. She is receiving intravenous antibiotics as well as intravenous steroids. The ster oids can be tapered. The antibiotics should continue in view of the infiltrates seen on a CT scan of chest. Will follow closely. Adrien La MD cc: [id number] TT: 02/06/2017 09:02:19 Confirmation # [id number] Dictation # [id number] alisia
[2017-02-06] MEDS: MethylPREDNISolone 40 mg Vial IVP SCH ×2 (09:59→21:25)
[2017-02-06] MEDS: cefTRIAXone 1 gm 1 GM/100 ML BAG IVPB SCH (11:32)
--- NOTE | 2017-02-06 12:40 | PN ---
DATE: 02/06/2017 SUBJECTIVE: The patient is 81 years old, seen and examined, sitting in chair, seems to be comfortabl e. Gets short of breath on walking. Minimal even to the bathroom. No chest pain. PHYSICAL EXAMINATION: VITAL SIGNS: She is afebrile, pulse 80, respirations 20, blood pressure 166/67. LUNGS: Bilateral diffusely decreased breath sounds with few expiratory rhonchi. HEART: S1, S2 audible. ABDOMEN: Soft, obese, nontender, no rebound, no guarding. NEUROLOGIC: She is awake and alert, able to communicate. EXTREMITIES: Bilateral legs +4 edema. LABORATORY EXAMINATION: There is no new lab available today; however, her blood sugar is 222. Blood cultures are negative. ASSESSMENT: 1. Patchy bilateral infiltrates. 2. Chronic obstructive pulmonary disease exacerbation. 3. Asthmatic bronchitis. 4. Small pulmonary nodule. 5. Coronary artery disease, status post open heart surgery. 6. Hyperlipidemia. 7. Morbid obesity. PLAN: The patient is currently on doxycycline. She is on Eliquis because of her AFib. She is on st atin. She is on Norvasc and Protonix. Continue on her Rocephin. Will reevaluate the patient in a.m . Nataly Gay MD cc: [phone] TT: 02/06/2017 12:39:53 Confirmation # [id number] Dictation # [id number] wandy
[2017-02-06] MEDS: Latanoprost 2.5 ml Opht Soln OU SCH (21:26)
[2017-02-07] MEDS: Levalbuterol 1.25 MG/3 ML Inhal Soln UD IH SCH ×4 (01:31→19:42)
[2017-02-07] MEDS: Pantoprazole 40 mg EC Tab PO SCH (06:04)
[2017-02-07 07:14] LABS: MEAN PLATELET VOLUME 9.9 fl (7.0-11.0); RED CELL DISTRIBUTION WIDTH 14.7 % (11.5-14.5); WHITE BLOOD COUNT 11.5 10^3/ul (4.5-11.0)
[2017-02-07 07:23] LABS: ALB/GLOB RATIO 1.1 (1.1-1.8); ALKALINE PHOSPHATASE 66 U/L (38-133); ALT/SGPT 33 U/L (7-56); AST/SGOT 19 U/L (15-39); BILIRUBIN,TOTAL 0.2 mg/dL (0.2-1.3); BLOOD UREA NITROGEN 27 mg/dL (7-21); CALCIUM 9.2 mg/dL (8.4-10.5); CARBON DIOXIDE 38 mmol/L (21-33); CHLORIDE 97 mmol/L (95-110); GFR AFRICAN-AMERICAN > 60; GLUCOSE,RANDOM 137 mg/dL (70-110); POTASSIUM 4.8 mmol/L (3.6-5.0); SODIUM 139 mmol/L (132-148); TOTAL PROTEIN 5.9 g/dL (5.8-8.3)
[2017-02-07] MEDS: Budesonide 0.5 mg/2 ml Inhal Susp UD IH SCH ×2 (07:39→19:42)
--- NOTE | 2017-02-07 08:45 | CP.PCM.PN ---
Subjective - Date & Time of Evaluation Date of Evaluation: 02/07/17 Time of Evaluation: 07:00 - Subjective Subjective: Stable on 2R. No CP or SOB. She feels better. V/S noted: RSR PE: Lungs: few rhonchi Cor.: S1S2 Abd.: soft Ext.: no edema Neuro.: alert I/O= 520/200 BC x2 NG at 3 days Labs noted. Objective - Vital Signs/Intake and Output Vital Signs (last 24 hours): Temp Pulse Resp BP Pulse Ox 97.7 F 82 20 130/61 96 02/07/17 05:14 02/07/17 05:14 02/07/17 05:14 02/07/17 05:14 02/07/17 05:14 Intake and Output: 02/07/17 02/07/17 06:59 18:59 Intake Total 520 Output Total 200 Balance 320 - Medications Medications: Current Medications Acetaminophen (Tylenol 325mg Tab) 650 mg PO Q6H PRN PRN Reason: Fever >100.4 F Alprazolam (Xanax) 0.25 mg PO BID PRN; Protocol PRN Reason: Anxiety Stop: 02/10/17 12:05 Amlodipine Besylate (Norvasc) 10 mg PO DAILY [facility] Last Admin: 02/06/17 10:01 Dose: 10 mg Apixaban (Eliquis) 5 mg PO BID [facility]ISA PRN Reason: Protocol Last Admin: 02/06/17 17:09 Dose: 5 mg Aspirin (Aspirin Chewable) 81 mg PO DAILY [facility] Last Admin: 02/06/17 10:01 Dose: 81 mg Atorvastatin Calcium (Lipitor) 20 mg PO DIN [facility] Last Admin: 02/06/17 17:09 Dose: 20 mg Budesonide (Pulmicort Respules) 0.5 mg IH [id number] [facility] Last Admin: 02/07/17 07:39 Dose: 0.5 mg Docusate Sodium (Colace) 100 mg PO DAILY [facility] Last Admin: 02/06/17 10:00 Dose: 100 mg Furosemide (Lasix) 40 mg IVP DAILY [facility] Last Admin: 02/06/17 10:00 Dose: 40 mg Doxycycline Hyclate 100 mg/ (Sodium Chloride) 100 mls @ 100 mls/hr IVPB Q12 [facility] PRN Reason: Protocol Last Admin: 02/06/17 21:24 Dose: 100 mls/hr Ceftriaxone Sodium (Rocephin 1 Gram Ivpb) 1 gm in 100 mls @ 100 mls/hr IVPB DAILY [facility] PRN Reason: Protocol Last Admin: 02/06/17 11:32 Dose: 100 mls/hr Insulin Human Lispro (Humalog High) 0 units SC ACHS [facility] PRN Reason: Protocol Last Admin: 02/06/17 22:21 Dose: Not Given Latanoprost (Xalatan Opht) 0 ml OU HS [facility] Last Admin: 02/06/17 21:26 Dose: 2.5 ml Levalbuterol HCl (Xopenex) 1.25 mg IH [id number] [facility] Last Admin: 02/07/17 07:39 Dose: 1.25 mg Methylprednisolone (Solu-Medrol) 30 mg IVP Q12 [facility] Last Admin: 02/06/17 21:25 Dose: 30 mg Pantoprazole Sodium (Protonix Ec Tab) 40 mg PO 0630 [facility] Last Admin: 02/07/17 06:04 Dose: 40 mg Potassium Chloride (Klor-Con 10) 10 meq PO DAILY [facility] Last Admin: 02/05/17 10:51 Dose: Not Given Timolol Maleate (Timoptic 0.5% Ophth Soln) 0 drop OU DAILY [facility] Last Admin: 02/06/17 11:55 Dose: Not Given Zolpidem Tartrate (Ambien) 5 mg PO HS [facility] PRN Reason: Protocol Last Admin: 02/06/17 21:23 Dose: 5 mg - Labs Labs: 02/07/17 07:00 02/07/17 07:00 Assessment and Plan - Assessment and Plan (Free Text) Assessment: Dyspnea COPD/Bronchitis/Home O2 Pneumonia Pulmonary nodules CAD/CABG Echo: Nl LV, Mod. TR, Mod/Sev PH HBP HLD LBBB Former Smoker Glaucoma Cataracts Plan: As per pulmonary, Dr. Gay OOB/PT/TCU Eval. IV > PO Lasix soon.
[2017-02-07] MEDS: Insulin Lispro (HUMAlog) HIGH Coverage SC SCH ×4 (08:48→22:15)
[2017-02-07] MEDS: MethylPREDNISolone 40 mg Vial IVP SCH ×2 (09:44→22:32)
[2017-02-07] MEDS: cefTRIAXone 1 gm 1 GM/100 ML BAG IVPB SCH (09:47)
[2017-02-07] MEDS ORDERED: Insulin Lispro (HUMAlog) HIGH Coverage SC ONE (12:17)
[2017-02-07] MEDS: Latanoprost 2.5 ml Opht Soln OU SCH (22:36)
--- NOTE | 2017-02-07 23:33 | PN ---
DATE: 02/07/2017 DATE OF EVALUATION: 02/07/2017 HISTORY OF PRESENT ILLNESS: The patient is an 81-year-old female admitted to the hospital with shortness of breath. CAT scan of the chest showed bilateral patchy infiltrate. There are 2 lung nodules on the left side subcentimeter- 5 mm and 7 mm. Breathing has improved during hospitalization. She is not able to ambulate very well. She is short of breath on walking short distances. She also has history of hypertension and congestive cardiac failure. Diabetes mellitus type 2, controlled on current medications. During hospitalization, she was found to have leukocytosis with an elevated white count of 15,000. White count is declining now. PAST MEDICAL HISTORY: 1. Hypertension. 2. Congestive heart failure. 3. Morbid obesity. 4. Non-insulin dependent diabetes mellitus. 5. Hyperlipidemia. ALLERGIES: No known drug allergies. PAST SURGICAL HISTORY: None. HOME MEDICATIONS: Ambien, Spiriva, timolol, simvastatin, prednisone, potassium , Lasix, aspirin, nebulizer, Xanax as needed. PERSONAL HISTORY: Ex-smoker, heavy smoker. SOCIAL HISTORY: Lives with daughter. REVIEW OF SYSTEMS: As per HPI. Rest of 12-point review of systems reviewed and negative. PHYSICAL EXAMINATION: GENERAL: The patient is comfortable, sitting in the chair, no acute distress. VITAL SIGNS: Afebrile, temperature 98.7, heart rate 80 per minute, respiratory 15 per minute, blood pressure 130/80. NECK: No lymphadenopathy. CHEST: No rhonchi, no crepitations. Air entry present, equal bilateral. Decreased at the bases. CARDIOVASCULAR: S1, S2 normal. No murmur, no gallop. ABDOMEN: Soft, nontender, no hepatosplenomegaly. EXTREMITIES: 1+ edema. LABORATORY DATA: White count 20,000. Hemoglobin 13.4, hematocrit 42, platelet count 293. Sodium 137, potassium 4, creatinine 0.8. ASSESSMENT AND PLAN: 1. Chronic obstructive pulmonary disease, acute exacerbation. 2. Congestive heart failure. 3. Non-insulin dependent diabetes mellitus. 4. Bilateral pneumonia, left-sided lung nodules. 5. Left-sided lung nodules and leukocytosis. 6. Leukocytosis. PLAN: She is currently on IV antibiotic, IV diuretic. Pulmonary following. She has lung nodules on the left side. She will need a repeat CAT scan of the chest in 3 months to rule out any growth or possibility of malignancy. White count is declining on admission it was 20,000; now it is 11,000. Predominantly granulocytosis and lymphopenia. Her breathing has improved during hospitalization. She is on Eliquis 5 mg p.o. b.i.d. for atrial fibrillation. Continue Lipitor 20 mg daily. Continue Norvasc 10 mg daily, Xanax p.r.n. Discharge likely tomorrow. She is on Solu-Medrol 20 mg p.o. q. 12. Discussed with the patient, discussed with the staff nurse. Rissa Chamberlain MD cc: [id number] TT: 02/07/2017 23:32:32 Confirmation # [id number] Dictation # [id number] mn MTDD
[2017-02-08] MEDS: Levalbuterol 1.25 MG/3 ML Inhal Soln UD IH SCH ×3 (01:07→13:55)
[2017-02-08 05:37] VITALS: O2SAT 94
[2017-02-08] MEDS: Pantoprazole 40 mg EC Tab PO SCH (05:40)
[2017-02-08] MEDS: Budesonide 0.5 mg/2 ml Inhal Susp UD IH SCH (07:40)
[2017-02-08 08:07] LABS: MEAN CORPUSCULAR HEMOGLOBIN 26.7 pg (25.0-35.0); MEAN CORPUSCULAR HGB CONC 30.8 g/dl (31.0-37.0); MEAN PLATELET VOLUME 10.1 fl (7.0-11.0); RED CELL DISTRIBUTION WIDTH 14.5 % (11.5-14.5)
[2017-02-08 08:22] LABS: ALKALINE PHOSPHATASE 57 U/L (38-133); ALT/SGPT 30 U/L (7-56); AST/SGOT 16 U/L (15-39); BILIRUBIN,TOTAL 0.3 mg/dL (0.2-1.3); BLOOD UREA NITROGEN 31 mg/dL (7-21); CARBON DIOXIDE 39 mmol/L (21-33); CHLORIDE 94 mmol/L (98-107); GFR AFRICAN-AMERICAN > 60; GLUCOSE,RANDOM 126 mg/dL (70-110); POTASSIUM 4.8 mmol/L (3.6-5.0); SODIUM 138 mmol/L (132-148); TOTAL PROTEIN 5.8 g/dL (5.8-8.3)
[2017-02-08] MEDS: Insulin Lispro (HUMAlog) HIGH Coverage SC SCH ×2 (08:50→12:00)
--- NOTE | 2017-02-08 09:24 | PN ---
DATE: 02/08/2017 The patient was seen and examined at bedside. She reports gradual improvement in shortness of breath . She also reports improvement in cough. She is on double antibiotics with Rocephin and doxycycline as well as nebulizer treatments with added budesonide as well as low-dose intravenous steroids. LABORATORY DATA: I reviewed today's blood work: WBC is 14.0, hemoglobin 12.3, potassium 4.8, sodium 138. PHYSICAL EXAMINATION: VITAL SIGNS: Temperature 98.2, pulse 59, saturation 94 on nasal cannula, blood pressure 120/86. HEAD, EARS, NOSE AND THROAT: Within normal limits. NECK: Supple with no jugular vein distention. CHEST: Symmetrical. HEART: S1, S2. No S3. Irregular. LUNGS: Diminished breath sounds at both bases with few rhonchi. No wheezing. GASTROINTESTINAL: Abdomen soft, nontender with no organomegaly. EXTREMITIES: 1+ edema. SKIN: Clear with no cyanosis. No skin rashes. NEUROLOGIC: No focal deficits. ASSESSMENT AND PLAN: 1. Pneumonia, clinically improving. 2. Pulmonary nodules. 3. Chronic obstructive pulmonary disease. 4. Congestive heart failure. 5. Resolving leukocytosis. The patient is making good progress. The steroids can be switched to oral. Lung nodules are on the left side, repeat CAT scan after a period of time was recommended. If remains afebrile, antibiotic c overage can be switched to oral upon discharge. Adrien La MD cc: [id number] TT: 02/08/2017 09:22:52 Confirmation # [id number] Dictation # [id number] nicole
[2017-02-08] MEDS: MethylPREDNISolone 40 mg Vial IVP SCH (09:50)
[2017-02-08] MEDS: cefTRIAXone 1 gm 1 GM/100 ML BAG IVPB SCH (09:51)
[2017-02-08 12:27] VITALS: BP 146/70; PULSE 72; RESP 18; TEMP 97.7
--- NOTE | 2017-02-08 21:26 | DS ---
The patient is [id number], seen and examined. She was admitted with increasing cough, congestion, shortness of breath. She was found to have patchy pneumonia . Has been diuresed, IV antibiotic , IV steroids and did well. Ready to go home. PHYSICAL EXAMINATION: VITAL SIGNS: She is afebrile, pulse 59, respirations 17, blood pressure 130/70. LUNGS: Bilateral diffusely decreased breath sounds. HEART: S1, S2 audible. rate control. ABDOMEN: Soft, nontender, no rebound, no guarding. NEUROLOGIC: The patient is awake and alert, communicative. LABORATORY EXAM: WBC is 14, hemoglobin 12.3, hematocrit 40, platelets of 291. Chemistry: Sodium 13 8, potassium 4.8, chloride 94, CO2 of 39, BUN 31, creatinine 0.8, blood sugar of 140. ASSESSMENT AND PLAN: 1. Chronic obstructive pulmonary disease exacerbation, improved. 2. Congestive heart failure exacerbation, improved, [id number] systolic. 3. Morbid obesity. 4. Hypertension. 5. Non-insulin dependent diabetes. PLAN: The patient is being discharged home on doxycycline 100 twice a day for 5 days and we are samantha g to give a tapering dose of steroids. She will be on prednisone 20 b.i.d. for 5 more days and I yoon l give her Ceftin 500 twice a day for 5 more days. She will follow up with me in a week or 2. Nataly Gay MD cc: [id number] TT: 02/08/2017 21:25:34 jean carlos
== END 2017-02-08 15:56 | disposition home or self-care (01) | DRG 190 ==
LOC: ED 10:51 → ERH 12:20 → 2RSO 19:48
PROVIDERS: ADMIT Internal Medicine; ATTEND Internal Medicine
DX: J44.1 Chronic obstructive pulmonary disease with (acute) exacerbation (principal); J18.9 Pneumonia, unspecified organism; I50.23 Acute on chronic systolic (congestive) heart failure; I27.2 Other secondary pulmonary hypertension; E11.65 Type 2 diabetes mellitus with hyperglycemia; Z99.81 Dependence on supplemental oxygen; I11.0 Hypertensive heart disease with heart failure; Z68.41 Body mass index [BMI] 40.0-44.9, adult; E66.01 Morbid (severe) obesity due to excess calories; I07.1 Rheumatic tricuspid insufficiency; I44.7 Left bundle-branch block, unspecified; J44.0 Chronic obstructive pulmonary disease with (acute) lower respiratory infection; T38.0X5A Adverse effect of glucocorticoids and synthetic analogues, initial encounter; E78.5 Hyperlipidemia, unspecified; F17.200 Nicotine dependence, unspecified, uncomplicated; H26.9 Unspecified cataract; H40.9 Unspecified glaucoma; I25.10 Atherosclerotic heart disease of native coronary artery without angina pectoris; Z79.01 Long term (current) use of anticoagulants; Z79.82 Long term (current) use of aspirin; Z79.899 Other long term (current) drug therapy; Z91.81 History of falling; Z95.1 Presence of aortocoronary bypass graft; R40.2412 Glasgow coma scale score 13-15, at arrival to emergency department; R91.8 Other nonspecific abnormal finding of lung field; I48.91 Unspecified atrial fibrillation